=== PATIENT | female | born 1990 | race African-American/Black ===

== ENCOUNTER 2024-07-30 09:18 | Emergency (ER) | payer OTHER ==
[~2024-07-30] VITALS: Ht 167.6 cm; Wt 74.8 kg
[2024-07-30 09:44] VITALS: BP 122/59; TEMP 97.9; O2SAT 99
[2024-07-30] MEDS ORDERED: FLUORESCEIN SODIUM OPHTH 1 EA STRIP ONE (10:23)
[2024-07-30] MEDS ORDERED: CIPR5DRO EACHEYE (11:29)
== END 2024-07-30 11:36 | disposition home or self-care (01) ==
LOC: ER 09:18
DX: H57.11 Ocular pain, right eye (principal); H57.89 Other specified disorders of eye and adnexa; Z88.0 Allergy status to penicillin; Y08.89XA Assault by other specified means, initial encounter; Y93.89 Activity, other specified; Y92.89 Other specified places as the place of occurrence of the external cause; Y99.8 Other external cause status

== ENCOUNTER 2025-04-19 09:41 | Emergency (ER) | payer OTHER ==
[~2025-04-19] VITALS: Ht 167.6 cm; Wt 77.1 kg
[~2025-04-19 09:41] MED LIST: CIPR5DRO EACHEYE
[2025-04-19 10:48] VITALS: BP 119/72; TEMP 98.2
[2025-04-19] MEDS ORDERED: IBUP-1955 PO (11:20)
[2025-04-19] MEDS ORDERED: ONDA4TAB11 PO (11:20)
[2025-04-19] MEDS ORDERED: ONDANSETRON 4 MG TAB.RAPDIS ONE (11:24)
[2025-04-19] MEDS ORDERED: KETOROLAC TROMETHAMINE 15 MG/ML VIAL ONE (11:24)
[2025-04-19] MEDS: KETOROLAC TROMETHAMINE 15 MG/ML VIAL IM ONE (11:25)
[2025-04-19] MEDS: ONDANSETRON 4 MG TAB.RAPDIS SL ONE (11:27)
[2025-04-19 11:30] VITALS: O2SAT 99
== END 2025-04-19 11:30 | disposition home or self-care (01) ==
LOC: ER 09:48
DX: S06.0X0A Concussion without loss of consciousness, initial encounter (principal); F17.200 Nicotine dependence, unspecified, uncomplicated; Z88.0 Allergy status to penicillin; W22.8XXA Striking against or struck by other objects, initial encounter; Y93.89 Activity, other specified; Y92.89 Other specified places as the place of occurrence of the external cause; Y99.8 Other external cause status
CPT/HCPCS: 99283; 96372; J1885; Q0162